=== PATIENT | male | born 1990 | race Caucasian/White ===

== ENCOUNTER 2017-06-05 16:19 | Emergency (ER) ==
[2017-06-05 16:23] VITALS: BP 135/86; TEMP 97.4; BMI 32.1
[2017-06-05] MEDS ORDERED: LIDOCAINE HCL 1% SDV SUBCUT STA (17:02)
--- NOTE | 2017-06-05 17:24 | ED.PDOC ---
General ED Provider: Dr. MILAGROS SOSA Chief Complaint: Finger Laceration Stated Complaint: Pateint states that he accidentally cut right second finger on pocket knife Time Seen by Physician: 17:21 Mode of Arrival: Walk-In Information Source: Patient Exam Limitations: No limitations Primary Care Provider: SALLIE PATTERSON Nursing and Triage Documentation Reviewed and Agree: Yes Skin Complaint Exam - Laceration/Abrasion/Hand Complaint/Exam Location of Injury: Right, Digit #2 Mechanism of Injury: Laceration Onset/Duration: 2 hours ago Symptoms Are: Still present Initial Severity: Moderate Current Severity: Moderate Aggravating: Movement Alleviating: Compression Associated Signs and Symptoms: Denies: Fever, Chills, Erythema, Numbness, Tingling Related History: Reports: Right hand dominant Hand Picture: 1 - 2 cm linear laceration with some bleeding. Differential Diagnoses: Laceration Review of Systems - Review Of Systems Constitutional: Reports: No symptoms Eyes: Reports: No symptoms Ears, Nose, Mouth, Throat: Reports: No symptoms Respiratory: Reports: No symptoms Cardiac: Reports: No symptoms GI: Reports: No symptoms : Reports: No symptoms Musculoskeletal: Reports: No symptoms Skin: Reports: Other (laceration right index finger. ) Neurological: Reports: No symptoms Endocrine: Reports: No symptoms Hematologic/Lymphatic: Reports: No symptoms All Other Systems: Reviewed and Negative Past Medical History - Past Medical History Previously Healthy: Yes Endocrine: Reports: None Cardiovascular: Reports: None Respiratory: Reports: None Hematological: Reports: None Gastrointestinal: Reports: None Genitourinary: Reports: None Neuro/Psych: Reports: None Musculoskeletal: Reports: None Cancer: Reports: None - Surgical History General Surgical History: Reports: None - Family History Family History: Reports: None - Social History Smoking Status: Current every day smoker, Heavy tobacco smoker, Dips snuff Hx Substance Use: No Alcohol Screening: None - Immunizations Tetanus Shot up to Date: (2008) Physical Exam - Physical Exam Appearance: Well-appearing, No pain distress, Well-nourished Eyes: ROM, EOMI, Conjunctiva clear ENT: Ears normal, Nose normal, Oropharynx normal Respiratory: Airway patent, Breath sounds clear, Breath sounds equal, Respirations nonlabored Cardiovascular: RRR, Pulses normal, No rub, No murmur GI/: Soft, Nontender, No masses, Bowel sounds normal, No Organomegaly Musculoskeletal: Normal strength, ROM intact, No edema, No calf tenderness Skin: Normal color Neurological: Sensation intact, Motor intact, Reflexes intact, Cranial nerves intact, Alert, Oriented Psychiatric: Affect appropriate, Mood appropriate Procedures - Laceration/Wound Repair right index finger dorsal aspect at the DIP joint to the base of nail. Wound Description: Linear Wound Length (cm): 2 Wound Explored: Clean Wound Irrigated: No Wound Prep: Saline Anesthesia: Lidocaine Suture Size and Type: 5.0 Ethlone Number of Sutures: 5 (Running ) Layer Closure?: No Sterile Dressing Applied?: Yes Splint Applied?: No Sling Applied?: No Critical Care Note - Critical Care Note Total Time (mins): 0 Course - Course Orders, Labs, Meds: Orders Category Date Time Status Lidocaine HCl/Pf [Lidocaine HCl 1% Sdv] MEDS 06/05/17 17:02 Stat 5 ml SUBCUT ONCE STA Medications Discontinued Medications Generic Name Dose Route Start Last Admin Trade Name Boni PRN Reason Stop Dose Admin Lidocaine HCl 5 ml 06/05/17 17:02 06/05/17 17:08 Lidocaine Hcl 1% Sdv SUBCUT 06/05/17 17:03 5 ml ONCE STA Administration Vital Signs: Temp Pulse Resp BP Pulse Ox 06/05/17 16:19 97.4 F L 99 H 18 135/86 98 Departure - Departure Time of Disposition: 17:22 Disposition: HOME SELF-CARE Discharge Problem: Laceration of finger Instructions: Finger Laceration (ED) Condition: Stable Pt referred to PMD for follow-up: Yes Additional Instructions: have suture removed in 7-10 days Reports signs of infection and return to the ER. Allergies/Adverse Reactions: Allergies No Known Allergies Allergy (Verified 06/05/17 16:23) Home Medications: Ambulatory Orders Buprenorphine HCl/Naloxone HCl [Suboxone 12 mg-3 mg Sl Film] 1 each SL DAILY 04/12 Ibuprofen [Motrin Ib] 800 mg PO TID 06/05/17 Lisinopril 10 mg PO DAILY 06/05/17 Venlafaxine HCl [Effexor] 225 mg PO DAILY 06/05/17 Disposition Discussed With: Patient
== END 2017-06-05 17:40 | disposition home or self-care (01) ==
LOC: ED 16:19
DX: S61.210A Laceration without foreign body of right index finger without damage to nail, initial encounter (principal); W26.0XXA Contact with knife, initial encounter; F17.210 Nicotine dependence, cigarettes, uncomplicated
CPT/HCPCS: 99282